=== PATIENT | male | born 1965 | race Caucasian/White ===

== ENCOUNTER 2024-03-05 08:44 | Day surgery (SDC) | payer OTHER ==
[2024-03-05] MEDS ORDERED: Decadron 4 MG INJ IV ONE (08:45)
[2024-03-05] MEDS ORDERED: Xylocaine-Mpf 2% 5 Ml Vial IJ ONE (08:45)
[2024-03-05] MEDS ORDERED: DIPRIVAN 200 MG/20 ML IV ONE (11:20)
[2024-03-05] MEDS ORDERED: Lactated Ringers 1,000 ML IV ONE (11:29)
--- NOTE | 2024-03-05 12:31 | XRAY ---
Indication: Right C2-C4 MBB. Intraoperative fluoroscopy provided for 16 seconds. 2 digital spot images submitted for interpretation demonstrates posterior needle tips projecting over expected right C2-C4 nerve roots. Correlate with intraoperative findings/report.
--- NOTE | 2024-03-06 14:12 | XRAY ---
16 seconds of fluoroscopy was used in surgery for a right C2-C4 MBB.
== END 2024-03-05 11:47 | disposition home or self-care (01) ==
LOC: SDC-PAIN 08:44
PROVIDERS: ATTEND Psychiatry & Neurology Pain Medicine
DX: M47.812 Spondylosis without myelopathy or radiculopathy, cervical region (principal); E11.9 Type 2 diabetes mellitus without complications
CPT/HCPCS: 64490; 64491; 72040; 77002; 82947; J1100; J2704